=== PATIENT | female | born 1950 | race Caucasian/White ===

== ENCOUNTER 2022-03-22 12:40 | Inpatient (IN) | payer MEDICARE, BC ==
[2022-03-22] MEDS ORDERED: Sodium Chloride 0.9% 10 ML Syringe FLUSH PRN (13:34)
[2022-03-22] MEDS ORDERED: cefTRIAXone 1 GM in Sodium Chloride 0.9% 100 ML IV ONE ×2 (15:18→19:55)
[2022-03-22] MEDS ORDERED: Albuterol/Ipratropium 3.0-0.5 MG/3 ML Neb Soln NEB PRN (19:14)
[2022-03-22] MEDS ORDERED: Zolpidem 5 MG Tab PO PRN (19:15)
[2022-03-22] MEDS ORDERED: Pneumococcal 23-Valent Conjugate Vaccine 0.5 ML Syringe IM ONE (19:30)
[2022-03-22] MEDS ORDERED: cefTRIAXone 1.5 GM in Sodium Chloride 0.9% 100 ML IV SCH (19:30)
[2022-03-22] MEDS ORDERED: Pneumococcal 13-Valent Conjugate Vaccine 0.5 ML Syringe IM ONE (19:30)
[2022-03-22] MEDS ORDERED: Enoxaparin 40 MG/0.4 ML Syringe SUBCUT ONE (20:00)
[2022-03-22] MEDS ORDERED: Sodium Chloride 0.9% 1,000 ML IV SCH (20:00)
[2022-03-22] MEDS ORDERED: Sodium Chloride 0.9% 10 ML Syringe FLUSH ONE (20:09)
[2022-03-22] MEDS ORDERED: Iopamidol 755 Mg/ML 100 ML Bottle IVPUSH ONE (20:09)
[2022-03-22] MEDS ORDERED: Sodium Chloride 0.9% 100 ML IV SCH (20:15)
[2022-03-22] MEDS: Azithromycin 500 MG in Sodium Chloride 0.9% 250 ML IV SCH (21:57)
[2022-03-22] MEDS: Sulfamethoxazole/Trimethoprim 800-160 MG Tab PO SCH (22:10)
[2022-03-23] MEDS: Acetaminophen 325 MG Tab PO PRN ×2 (05:43→20:06)
[2022-03-23] MEDS ORDERED: Iopamidol 612 MG/ML 100 ML Bottle IVPUSH ONE (08:14)
[2022-03-23] MEDS ORDERED: Sodium Chloride 0.9% 10 ML Syringe FLUSH PRN (08:14)
[2022-03-23] MEDS ORDERED: Enoxaparin 30 MG/0.3 ML Syringe SUBCUT SCH (09:00)
[2022-03-23] MEDS: Sulfamethoxazole/Trimethoprim 800-160 MG Tab PO SCH ×2 (09:15→20:08)
[2022-03-23] MEDS ORDERED: Polyethylene Glycol 3350 Powder 17 GM Packet PO ONE (15:00)
[2022-03-23] MEDS ORDERED: cefTRIAXone 1.5 GM in Sodium Chloride 0.9% 100 ML IV SCH (16:00)
[2022-03-23] MEDS: cefTRIAXone 2 GM in Sodium Chloride 0.9% 100 ML IV SCH (18:27)
[2022-03-23] MEDS: Enoxaparin 40 MG/0.4 ML Syringe SUBCUT SCH (20:08)
[2022-03-23] MEDS: Azithromycin 500 MG in Sodium Chloride 0.9% 250 ML IV SCH (20:17)
[2022-03-24] MEDS: Sulfamethoxazole/Trimethoprim 800-160 MG Tab PO SCH ×2 (09:13→20:13)
[2022-03-24 10:05] LABS: BORDETELLA PARAPERT IS1001 NOT DETECTED
[2022-03-24] MEDS ORDERED: Gadobenate Dimeglumine 529 MG/ML 15 ML SDV IVPUSH ONE (11:38)
[2022-03-24] MEDS ORDERED: Sodium Chloride 0.9% 10 ML Syringe FLUSH SCH (11:45)
[2022-03-24] MEDS: Levalbuterol HCl 1.25 MG/3 ML Neb NEB SCH ×2 (15:16→20:33)
[2022-03-24] MEDS: Acetaminophen 325 MG Tab PO PRN ×2 (16:00→21:36)
[2022-03-24] MEDS: cefTRIAXone 2 GM in Sodium Chloride 0.9% 100 ML IV SCH (17:25)
[2022-03-24] MEDS: Azithromycin 500 MG in Sodium Chloride 0.9% 250 ML IV SCH (20:13)
[2022-03-24] MEDS: Enoxaparin 40 MG/0.4 ML Syringe SUBCUT SCH (20:13)
[2022-03-25] MEDS: Levalbuterol HCl 1.25 MG/3 ML Neb NEB SCH ×4 (02:58→22:04)
[2022-03-25] MEDS: Sulfamethoxazole/Trimethoprim 800-160 MG Tab PO SCH ×2 (08:07→21:21)
[2022-03-25] MEDS: Acetaminophen 325 MG Tab PO PRN ×2 (08:15→13:54)
[2022-03-25] MEDS: methylPREDNISolone Sodium Succinate 125 MG/2 ML SDV IVPUSH SCH ×2 (13:55→21:21)
[2022-03-25] MEDS ORDERED: Magnesium Hydroxide 400 MG/5 ML Susp 30 ML Cup PO PRN (15:37)
[2022-03-25] MEDS: Metoprolol Tartrate 25 MG Tab PO SCH (16:58)
[2022-03-25] MEDS ORDERED: Aspirin 81 MG Tab.Chew PO ONE (17:00)
[2022-03-25] MEDS: cefTRIAXone 2 GM in Sodium Chloride 0.9% 100 ML IV SCH (17:24)
[2022-03-25] MEDS: Enoxaparin 40 MG/0.4 ML Syringe SUBCUT SCH (21:19)
[2022-03-25] MEDS: Azithromycin 500 MG in Sodium Chloride 0.9% 250 ML IV SCH (21:20)
[2022-03-26] MEDS: Levalbuterol HCl 1.25 MG/3 ML Neb NEB SCH ×5 (04:14→21:52)
[2022-03-26] MEDS: Metoprolol Tartrate 25 MG Tab PO SCH ×2 (05:14→20:37)
[2022-03-26] MEDS: methylPREDNISolone Sodium Succinate 125 MG/2 ML SDV IVPUSH SCH ×2 (05:14→14:46)
[2022-03-26] MEDS ORDERED: Levalbuterol HCl 1.25 MG/3 ML Neb ONE (05:29)
[2022-03-26] MEDS: Pantoprazole 40 MG Tab.CR PO SCH (08:42)
[2022-03-26] MEDS: Aspirin 325 MG Tab.EC PO SCH (08:42)
[2022-03-26] MEDS: Sulfamethoxazole/Trimethoprim 800-160 MG Tab PO SCH ×2 (08:42→20:37)
[2022-03-26] MEDS ORDERED: Rosuvastatin 10 MG Tab PO SCH (09:00)
[2022-03-26] MEDS ORDERED: Potassium Chloride 20 MEQ Tab.ER PO SCH (09:00)
[2022-03-26] MEDS ORDERED: Furosemide 20 MG Tab PO SCH (09:00)
[2022-03-26] MEDS: Acetaminophen 325 MG Tab PO PRN (11:53)
[2022-03-26] MEDS ORDERED: Levalbuterol HCl 1.25 MG/3 ML Neb NEB SCH (12:00)
[2022-03-26] MEDS ORDERED: Levofloxacin 500 MG Tab PO ONE (16:00)
[2022-03-26] MEDS ORDERED: predniSONE 10 MG Tab PO ONE (16:00)
[2022-03-26] MEDS ORDERED: Metoprolol Tartrate 25 MG Tab PO SCH (17:30)
[2022-03-26] MEDS ORDERED: Azithromycin 500 MG in Sodium Chloride 0.9% 250 ML IV SCH (20:00)
[2022-03-26] MEDS: Enoxaparin 40 MG/0.4 ML Syringe SUBCUT SCH (20:37)
[2022-03-27] MEDS: Levalbuterol HCl 1.25 MG/3 ML Neb NEB SCH ×4 (06:55→20:38)
[2022-03-27] MEDS: Aspirin 325 MG Tab.EC PO SCH (08:18)
[2022-03-27] MEDS: Pantoprazole 40 MG Tab.CR PO SCH (08:19)
[2022-03-27] MEDS: Sulfamethoxazole/Trimethoprim 800-160 MG Tab PO SCH ×2 (08:19→21:34)
[2022-03-27] MEDS: Levofloxacin 250 MG Tab PO SCH (08:19)
[2022-03-27] MEDS: predniSONE 20 MG Tab PO SCH (08:19)
[2022-03-27] MEDS: Metoprolol Tartrate 25 MG Tab PO SCH ×3 (08:29→21:35)
[2022-03-27] MEDS: Enoxaparin 40 MG/0.4 ML Syringe SUBCUT SCH (21:34)
[2022-03-28] MEDS: Acetaminophen 325 MG Tab PO PRN ×2 (04:22→08:15)
[2022-03-28] MEDS: Levalbuterol HCl 1.25 MG/3 ML Neb NEB SCH ×4 (06:47→20:36)
[2022-03-28] MEDS: Sulfamethoxazole/Trimethoprim 800-160 MG Tab PO SCH ×2 (08:13→20:43)
[2022-03-28] MEDS: Aspirin 325 MG Tab.EC PO SCH (08:14)
[2022-03-28] MEDS: predniSONE 20 MG Tab PO SCH (08:14)
[2022-03-28] MEDS: Pantoprazole 40 MG Tab.CR PO SCH (08:14)
[2022-03-28] MEDS: Metoprolol Tartrate 25 MG Tab PO SCH ×2 (08:14→21:17)
[2022-03-28] MEDS: Levofloxacin 250 MG Tab PO SCH (08:14)
[2022-03-28] MEDS: Enoxaparin 40 MG/0.4 ML Syringe SUBCUT SCH (20:43)
[2022-03-29] MEDS: Levalbuterol HCl 1.25 MG/3 ML Neb NEB SCH ×4 (05:41→20:06)
[2022-03-29] MEDS: Sulfamethoxazole/Trimethoprim 800-160 MG Tab PO SCH (08:12)
[2022-03-29] MEDS: Pantoprazole 40 MG Tab.CR PO SCH (08:13)
[2022-03-29] MEDS: predniSONE 20 MG Tab PO SCH (08:14)
[2022-03-29] MEDS: Acetaminophen 325 MG Tab PO PRN (08:14)
[2022-03-29] MEDS: Levofloxacin 250 MG Tab PO SCH (08:14)
[2022-03-29] MEDS: Aspirin 81 MG Tab.EC PO SCH (08:14)
[2022-03-29] MEDS: Metoprolol Tartrate 25 MG Tab PO SCH ×3 (08:18→21:24)
[2022-03-29] MEDS: Polyethylene Glycol 3350 Powder 17 GM Packet PO SCH (18:26)
[2022-03-29] MEDS: Enoxaparin 40 MG/0.4 ML Syringe SUBCUT SCH (20:38)
[2022-03-30] MEDS: Acetaminophen 325 MG Tab PO PRN ×2 (00:29→09:33)
[2022-03-30] MEDS: Levalbuterol HCl 1.25 MG/3 ML Neb NEB SCH ×3 (05:57→15:26)
[2022-03-30] MEDS: Metoprolol Tartrate 25 MG Tab PO SCH (09:31)
[2022-03-30] MEDS: Levofloxacin 250 MG Tab PO SCH (09:31)
[2022-03-30] MEDS: Pantoprazole 40 MG Tab.CR PO SCH (09:31)
[2022-03-30] MEDS: predniSONE 20 MG Tab PO SCH (09:33)
[2022-03-30] MEDS: Aspirin 81 MG Tab.EC PO SCH (09:33)
[2022-03-30] MEDS: Polyethylene Glycol 3350 Powder 17 GM Packet PO SCH (09:33)
[2022-03-31] MEDS ORDERED: Sulfamethoxazole/Trimethoprim 800-160 MG Tab PO SCH (09:00)
== END 2022-03-30 16:10 | DRG 196 ==
LOC: JD.ED 12:40 → JD.MS 17:10
PROVIDERS: ADMIT Pediatrics; ATTEND Internal Medicine
DX: J18.9 Pneumonia, unspecified organism (principal); J84.9 Interstitial pulmonary disease, unspecified; I21.A1 Myocardial infarction type 2; J96.21 Acute and chronic respiratory failure with hypoxia; J44.0 Chronic obstructive pulmonary disease with (acute) lower respiratory infection; K59.09 Other constipation; E78.5 Hyperlipidemia, unspecified; E11.9 Type 2 diabetes mellitus without complications; J20.9 Acute bronchitis, unspecified; D27.9 Benign neoplasm of unspecified ovary; Z20.822 Contact with and (suspected) exposure to COVID-19; E87.5 Hyperkalemia; Z79.82 Long term (current) use of aspirin; Z79.899 Other long term (current) drug therapy; Z79.52 Long term (current) use of systemic steroids; Z86.16 Personal history of COVID-19; Z98.42 Cataract extraction status, left eye; Z98.41 Cataract extraction status, right eye; Z90.89 Acquired absence of other organs; Z79.1 Long term (current) use of non-steroidal anti-inflammatories (NSAID); Z98.890 Other specified postprocedural states; Z87.891 Personal history of nicotine dependence
CPT/HCPCS: 36415; 71046; 80053; 81003; 83605; 83735; 83880; 85025; 86140; 87040 ×2; 87486; 87581; 87633; 87798; 87899; 93005; 96365; 99285; J0696; J3490; U0002; 71045; 71045-26; 71275; 71275-26; 72197; 72197-26; 74177; 74177-26; 80048; 80076; 84484; 85652; 87081; 87205; 87641; 93010; 93306; 94640; 94667; 94668; 94760; 94761; 94762; 97110-GP; 97162-GP; 97530-GP; 99284; A9270-GY; A9577; J0456; J1650; J2930; J7030; J7050; J7512; J7612-GY; J7620-GY; Q9967

== ENCOUNTER 2022-08-03 19:04 | Inpatient (IN) | payer MEDICARE, BC ==
[2022-08-03] MEDS ORDERED: Sodium Chloride 0.9% 10 ML Syringe FLUSH PRN (19:47)
[2022-08-03] MEDS ORDERED: Albuterol/Ipratropium 3.0-0.5 MG/3 ML Neb Soln NEB ONE (19:48)
[2022-08-03] MEDS ORDERED: methylPREDNISolone Sodium Succinate 125 MG/2 ML SDV IVPUSH ONE (19:49)
[2022-08-03] MEDS ORDERED: Aspirin 81 MG Tab.Chew PO ONE (20:53)
[2022-08-03] MEDS ORDERED: Famotidine 20 MG Tab PO ONE (20:53)
[2022-08-03 21:32] LABS: CORONAVIRUS COVID-19 NAA POSITIVE (NEGATIVE)
[2022-08-04] MEDS ORDERED: Albuterol/Ipratropium 3.0-0.5 MG/3 ML Neb Soln NEB ONE (05:56)
[2022-08-04] MEDS: Pantoprazole 40 MG Tab.CR PO SCH (10:06)
[2022-08-04] MEDS ORDERED: oxyCODONE 5 MG Tab PO PRN (12:52)
[2022-08-04] MEDS ORDERED: Sodium Chloride 0.9% 10 ML Syringe FLUSH PRN (12:52)
[2022-08-04] MEDS ORDERED: Acetaminophen 325 MG Tab PO PRN (12:52)
[2022-08-04] MEDS ORDERED: Azithromycin 500 MG in Sodium Chloride 0.9% 250 ML IV SCH (13:30)
[2022-08-04] MEDS ORDERED: REMDESIVIR 200 MG in Sodium Chloride 0.9% 250 ML IV ONE (14:30)
[2022-08-04] MEDS ORDERED: Enoxaparin 40 MG/0.4 ML Syringe SUBCUT SCH (15:00)
[2022-08-04] MEDS: Albuterol/Ipratropium 3.0-0.5 MG/3 ML Neb Soln NEB PRN (17:15)
[2022-08-04] MEDS: Azithromycin 500 MG in Sodium Chloride 0.9% 250 ML IV SCH (18:17)
[2022-08-04] MEDS: Enoxaparin 40 MG/0.4 ML Syringe SUBCUT SCH (18:18)
[2022-08-04] MEDS ORDERED: Aspirin 81 MG Tab.Chew PO ONE (20:24)
[2022-08-04] MEDS ORDERED: Famotidine 20 MG Tab PO ONE (20:25)
[2022-08-04] MEDS ORDERED: Temazepam 7.5 MG Cap PO PRN (21:00)
[2022-08-05] MEDS: predniSONE 20 MG Tab PO SCH (06:00)
[2022-08-05] MEDS: Pantoprazole 40 MG Tab.CR PO SCH (06:00)
[2022-08-05] MEDS ORDERED: Carboxymethylcellulose Sodium 1% Ophth Gel 15 ML Bottle EYEBOTH PRN (09:57)
[2022-08-05] MEDS ORDERED: Sodium Chloride 0.65% Nasal Spray 45 ML Bottle NASBOTH PRN (09:57)
[2022-08-05] MEDS ORDERED: hydrOXYzine HCl 10 MG Tab PO PRN (09:57)
[2022-08-05] MEDS ORDERED: Levalbuterol HCl 1.25 MG/3 ML Neb NEB PRN (10:00)
[2022-08-05] MEDS ORDERED: Lactoperoxi/Gluc Oxid/Pot Thio 42 GM Tube MUCMEM PRN (10:10)
[2022-08-05] MEDS: Albuterol/Ipratropium 3.0-0.5 MG/3 ML Neb Soln NEB PRN (10:13)
[2022-08-05] MEDS: Budesonide 0.5 MG/2 ML Neb Susp NEB SCH ×2 (10:22→21:12)
[2022-08-05] MEDS ORDERED: Aluminum Hydroxide/Magnesium Hydroxide/Simethicone Susp 30 ML Cup PO ONE (13:00)
[2022-08-05] MEDS: REMDESIVIR 100 MG in Sodium Chloride 0.9% 250 ML IV SCH (13:47)
[2022-08-05] MEDS: Enoxaparin 40 MG/0.4 ML Syringe SUBCUT SCH (17:41)
[2022-08-05] MEDS: Azithromycin 500 MG in Sodium Chloride 0.9% 250 ML IV SCH (17:41)
[2022-08-05] MEDS: Famotidine 20 MG Tab PO SCH (17:41)
[2022-08-06] MEDS: Pantoprazole 40 MG Tab.CR PO SCH (06:00)
[2022-08-06] MEDS: predniSONE 20 MG Tab PO SCH (06:00)
[2022-08-06] MEDS: Budesonide 0.5 MG/2 ML Neb Susp NEB SCH ×2 (08:42→20:45)
[2022-08-06] MEDS: Aspirin 81 MG Tab.EC PO SCH (08:44)
[2022-08-06] MEDS ORDERED: Non-Formulary Medication 1 Each (Omeprazole 20 MG Capsule.Dr) PO SCH (09:00)
[2022-08-06] MEDS: REMDESIVIR 100 MG in Sodium Chloride 0.9% 250 ML IV SCH (15:02)
[2022-08-06] MEDS: Azithromycin 500 MG in Sodium Chloride 0.9% 250 ML IV SCH (17:08)
[2022-08-06] MEDS: Enoxaparin 40 MG/0.4 ML Syringe SUBCUT SCH (17:08)
[2022-08-06] MEDS: Famotidine 20 MG Tab PO SCH (17:09)
[2022-08-07] MEDS: Pantoprazole 40 MG Tab.CR PO SCH (06:24)
[2022-08-07] MEDS: predniSONE 20 MG Tab PO SCH (06:24)
[2022-08-07] MEDS: predniSONE 10 MG Tab PO SCH (07:23)
[2022-08-07] MEDS: Aspirin 81 MG Tab.EC PO SCH (08:35)
[2022-08-07] MEDS: Budesonide 0.5 MG/2 ML Neb Susp NEB SCH ×2 (09:18→20:47)
[2022-08-07] MEDS: REMDESIVIR 100 MG in Sodium Chloride 0.9% 250 ML IV SCH (14:36)
[2022-08-07] MEDS: Enoxaparin 40 MG/0.4 ML Syringe SUBCUT SCH (17:12)
[2022-08-07] MEDS: Azithromycin 500 MG in Sodium Chloride 0.9% 250 ML IV SCH (17:13)
[2022-08-07] MEDS: Famotidine 20 MG Tab PO SCH (17:13)
[2022-08-08] MEDS: Pantoprazole 40 MG Tab.CR PO SCH (06:07)
[2022-08-08] MEDS: predniSONE 10 MG Tab PO SCH (06:07)
[2022-08-08] MEDS: Aspirin 81 MG Tab.EC PO SCH (08:16)
[2022-08-08] MEDS: Budesonide 0.5 MG/2 ML Neb Susp NEB SCH (09:15)
== END 2022-08-08 10:48 | disposition home or self-care (01) | DRG 177 ==
LOC: JD.ED 19:04 → JD.MS 08-04 12:52
PROVIDERS: ADMIT Internal Medicine; ATTEND Internal Medicine
PROC: XW033E5 Introduction of Remdesivir Anti-infective into Peripheral Vein, Percutaneous Approach, New Technology Group 5 (ICD-10-PCS; principal; 2022-08-04)
DX: U07.1 COVID-19 (principal); J96.21 Acute and chronic respiratory failure with hypoxia; J44.1 Chronic obstructive pulmonary disease with (acute) exacerbation; R77.8 Other specified abnormalities of plasma proteins; Z99.81 Dependence on supplemental oxygen; H54.7 Unspecified visual loss; K59.09 Other constipation; M19.90 Unspecified osteoarthritis, unspecified site; G89.29 Other chronic pain; M54.2 Cervicalgia; E61.1 Iron deficiency; Z86.16 Personal history of COVID-19; Z79.82 Long term (current) use of aspirin; Z79.899 Other long term (current) drug therapy; Z87.891 Personal history of nicotine dependence; Z79.52 Long term (current) use of systemic steroids; Z86.19 Personal history of other infectious and parasitic diseases; Z90.89 Acquired absence of other organs
CPT/HCPCS: 0241U; 36415; 71045; 80053; 83735; 84484; 85025; 86140; 93005; 94640; 94761; 94762; 97110; 97116; 97162; 99285; A9270-GY; J0456; J1650; J3490; J7050; J7512; J7620-GY

== ENCOUNTER 2022-09-02 10:04 | Inpatient (IN) | payer MEDICARE, BC ==
[2022-09-02 11:18] LABS: CORONAVIRUS COVID-19 NAA NEGATIVE (NEGATIVE)
[2022-09-02] MEDS: Albuterol/Ipratropium 3.0-0.5 MG/3 ML Neb Soln NEB PRN ×2 (11:32→17:22)
[2022-09-02] MEDS ORDERED: methylPREDNISolone Sodium Succinate 125 MG/2 ML SDV IVPUSH ONE (11:38)
[2022-09-02] MEDS ORDERED: Furosemide 40 MG/4 ML VIAL IVPUSH ONE (14:07)
[2022-09-02] MEDS ORDERED: Sodium Chloride 0.9% 1,000 ML IV SCH (15:00)
[2022-09-02] MEDS ORDERED: Sodium Chloride 0.9% 10 ML Syringe FLUSH PRN (17:10)
[2022-09-02] MEDS ORDERED: Ondansetron 4 MG/2 ML SDV IV PRN (17:28)
[2022-09-02] MEDS ORDERED: Ondansetron 4 MG Tab.DIS PO PRN (17:28)
[2022-09-02] MEDS ORDERED: Acetaminophen 325 MG Tab PO PRN (17:28)
[2022-09-02] MEDS ORDERED: Docusate Sodium 100 MG Cap PO PRN (17:28)
[2022-09-02] MEDS ORDERED: Albuterol/Ipratropium 3.0-0.5 MG/3 ML Neb Soln NEB PRN (17:30)
[2022-09-02] MEDS ORDERED: cefTRIAXone 1 GM in Sodium Chloride 0.9% 100 ML IV SCH (17:30)
[2022-09-02] MEDS ORDERED: Albuterol/Ipratropium 3.0-0.5 MG/3 ML Neb Soln NEB SCH (17:30)
[2022-09-02] MEDS ORDERED: Azithromycin 500 MG in Sodium Chloride 0.9% 250 ML IV SCH (17:30)
[2022-09-02] MEDS ORDERED: methylPREDNISolone Sodium Succinate 40 MG/1 ML SDV IVPUSH SCH (17:30)
[2022-09-02] MEDS ORDERED: Heparin Sodium/D5W 25,000 UNITS/500 ML BAG IV SCH (17:45)
[2022-09-02] MEDS ORDERED: EPINEPHrine 1:10,000 1 MG/10 ML Syringe IVPUSH ONE ×7 (19:23→21:58)
[2022-09-02] MEDS ORDERED: Calcium Chloride 10% 1 GM/10 ML Syringe IVPUSH ONE (19:33)
[2022-09-02] MEDS ORDERED: EPINEPHrine 1 MG/ML SDV ONE (19:43)
[2022-09-02] MEDS ORDERED: EPINEPHrine 1:10,000 1 MG/10 ML Syringe ONE (19:44)
[2022-09-02] MEDS ORDERED: Sodium Bicarbonate 8.4% 50 MEQ/50 ML Syringe IVPUSH ONE (21:55)
== END 2022-09-02 19:00 | disposition expired | DRG 208 ==
LOC: JD.ED 10:04 → JD.MS 17:10
PROVIDERS: ADMIT Hospitalist; ATTEND Hospitalist
PROC: 0BH17EZ Insertion of Endotracheal Airway into Trachea, Via Natural or Artificial Opening (ICD-10-PCS; principal; 2022-09-02)
PROC: 5A1935Z Respiratory Ventilation, Less than 24 Consecutive Hours (ICD-10-PCS; 2022-09-02)
DX: J96.21 Acute and chronic respiratory failure with hypoxia (principal); I21.4 Non-ST elevation (NSTEMI) myocardial infarction; E87.20 Acidosis, unspecified; J44.1 Chronic obstructive pulmonary disease with (acute) exacerbation; J84.10 Pulmonary fibrosis, unspecified; H54.7 Unspecified visual loss; K59.09 Other constipation; M19.90 Unspecified osteoarthritis, unspecified site; Z20.822 Contact with and (suspected) exposure to COVID-19; I50.9 Heart failure, unspecified; E61.1 Iron deficiency; M54.2 Cervicalgia; Z86.19 Personal history of other infectious and parasitic diseases; Z79.82 Long term (current) use of aspirin; Z79.899 Other long term (current) drug therapy; Z86.16 Personal history of COVID-19; Z90.89 Acquired absence of other organs; Z99.81 Dependence on supplemental oxygen
CPT/HCPCS: 0241U; 31500; 36415; 36600; 36680; 71045; 71045-26; 80053; 81001; 82553; 82803; 83605; 83735; 83880; 84484; 85025; 85610; 85652; 86140; 92960; 93005; 94640; 96361; 96374; 96375; 99285-25; J0171; J1940; J2930; J7030; J7620-GY